=== PATIENT | female | born 1985 | race Caucasian/White ===

== ENCOUNTER → 2017-11-12 09:10 | Outpatient (CLI) | payer MEDICAID, SELFPAY ==
--- NOTE | 2017-11-12 09:13 | XR_ITS ---
XR DEXA axial skeleton HISTORY: ITS.REASON: OSTEOPENIA ORDERING PHYSICIAN: Malgorzata Guerrero PATIENT AGE: 31 years COMPARISON: None FINDINGS: The BMD measured at the Right femoral neck is 0.902 g/cm squared with a T score of -1.0. This is considered Normal according to the World Health Organization criteria. Fracture risk is Low. Treatment is advised. The L1 L4 density has a T score of 1.0, considered normal IMPRESSION: Bone density is at lower limits of normal. No fracture risk. Recommend follow-up exam October 2019
== END ==
PROVIDERS: Family Provider Family Medicine; PCP Nurse Practitioner Family; Visit Provider Nurse Practitioner Family
DX: M85.80 Other specified disorders of bone density and structure, unspecified site (principal)
CPT/HCPCS: 77080